=== PATIENT | female | born 1980 | race Caucasian/White ===

== ENCOUNTER 2016-12-07 14:36 | Emergency (ER) | payer OTHER | END 2016-12-07 15:32 | disposition home or self-care (01) | LOC: ER 14:36 | DX: J10.1 Influenza due to other identified influenza virus with other respiratory manifestations (principal); I10 Essential (primary) hypertension; R05 Cough; Z88.2 Allergy status to sulfonamides; Z79.899 Other long term (current) drug therapy | CPT/HCPCS: 87400; 99283 ==

== ENCOUNTER 2017-03-14 23:35 | Emergency (ER) | payer OTHER ==
[2017-03-15 00:32] LABS: URINE BILIRUBIN NEGATIVE (NEGATIVE); URINE BLOOD 2+ (NEGATIVE); URINE GLUCOSE (UA) NORMAL (NORMAL); URINE KETONE NEGATIVE (NEGATIVE); URINE LEUKOCYTE ESTERASE TRACE (NEGATIVE); URINE NITRATE NEGATIVE (NEGATIVE); URINE PROTEIN TRACE (NEGATIVE)
[2017-03-15 00:32] LABS: BASO # 0.1 10_X3_uL (0.0-0.1); BASO % 0.6 % (0.1-1.2); EOS # 0.1 10_X3_uL (0.0-0.4); EOS % 1.2 % (0.7-5.8); GRAN # 5.8 10_X3_uL (1.6-6.1); GRAN % 53.8 % (34.0-71.1); HEMATOCRIT 39.6 % (34-45); HEMOGLOBIN 13.4 g/dL (11.2-15.7); LYMPH # 4.1 10_X3_uL (1.2-3.7); MEAN CORPUSCULAR HEMOGLOBIN 27.7 pg (27.0-33.0); MEAN CORPUSCULAR HGB CONC 33.8 g/dL (32.0-36.0); MEAN PLATELET VOLUME 9.9 fl (7.5-11.5); MONO # 0.7 10_X3_uL (0.2-0.9); MONO % 6.4 % (4.7-12.5); PLATELET COUNT 314 x10_3/uL (182-369); RED BLOOD COUNT 4.83 x10_6/uL (3.9-5.2); RED CELL DISTRIBUTION WIDTH 13.9 % (11.7-14.4); WHITE BLOOD COUNT 10.9 x10_3/uL (4.0-10.0)
[2017-03-15 00:33] LABS: URINE BACTERIA TRACE (NONE SEEN); URINE MUCUS 1+; URINE SQUAMOUS EPITHELIAL CELL 0-10 /[HPF] (NONE SEEN); URINE WBC 0-5 /[HPF] (0-5)
[2017-03-15 00:49] LABS: ALBUMIN 4.5 gm/dL (3.4-5.0); ALKALINE PHOSPHATASE 47 U/L (50-136); ALT/SGPT 10 U/L (3.5-33.9); AMYLASE 67 U/L (15.62-74.58); AST/SGOT 10 U/L (7.04-26.96); BLOOD UREA NITROGEN 7 mg/dL (7-18); CALCIUM 9.3 mg/dL (8.7-10.7); CARBON DIOXIDE 22 mmol/L (21-32); CREATININE 0.7 mg/dL (0.6-1.3); GLUCOSE,RANDOM 88 mg/dL (70-99); LIPASE 43 U/L (6.75-60.75); POTASSIUM 3.4 mmol/L (3.5-5.1); SODIUM 138 mmol/L (136-145); TOTAL PROTEIN 7.2 gm/dL (6.4-8.2)
[2017-03-15 00:50] LABS: BILIRUBIN,TOTAL < 0.15 mg/dL (0.0-1.0)
== END 2017-03-15 01:03 | disposition home or self-care (01) ==
LOC: ER 23:35
PROVIDERS: Emergency Medicine
DX: R10.9 Unspecified abdominal pain (principal); Z32.01 Encounter for pregnancy test, result positive; I10 Essential (primary) hypertension; R11.0 Nausea; F17.210 Nicotine dependence, cigarettes, uncomplicated; Z79.899 Other long term (current) drug therapy; Z88.2 Allergy status to sulfonamides
CPT/HCPCS: 36415; 80053; 81001; 81025; 82150; 83690; 85025; 99070; 99284-25